=== PATIENT | male | born 1960 | race Caucasian/White ===

== ENCOUNTER 2017-10-28 21:52 | Observation (INO) | payer BC ==
[~2017-10-28] VITALS: Ht 175.3 cm; Wt 114.1 kg
[2017-10-28 22:18] VITALS: BP 185/98; PULSE 92; RESP 26; TEMP 97.2; O2SAT 100
[2017-10-28] MEDS ORDERED: HYDROmorphone HCL PF 2 MG/ML VIAL IV PUSH ONE (22:45)
[2017-10-28] MEDS ORDERED: SODIUM CHLORIDE 0.9% FLUSH 10 ML FLUSH IV FLUSH PRN (22:45)
[2017-10-28] MEDS ORDERED: CYCLOBENZAPRINE HCL 10 MG TAB PO ONE (22:45)
--- NOTE | 2017-10-28 22:50 | PD ---
HPI Chief Complaint: Back/ Neck Pain or Injury Time Seen by Provider: 22:30 Travel History International Travel<30 days: No Contact w/Intl Traveler<30days: No Traveled to known affect area: No History of Present Illness HPI 56-year-old male here for evaluation of severe lower back pain. The patient reports history of sciatica and reports that over the last week it has been progressively getting worse. He complains of lower back pain on the right side that radiates down his right leg. Today he tried to massage his lower back by laying on a tennis ball and reports experiencing severe pain with this. He states that the pain is so bad that he is unable to ambulate or move his leg. He denies urinary or bowel incontinence or retention. No fevers or chills. No history of cancer. No IVDU. [facility] Social History Tobacco Use: No Allergies-Medications (Allergen,Severity, Reaction): Coded Allergies: Penicillins (Verified Allergy, Unknown, 10/28/17) codeine (Verified Allergy, Unknown, 10/28/17) Reported Meds & Prescriptions Reported Meds & Active Scripts Active No Active Prescriptions or Reported Medications Review of Systems Except as stated in HPI: all other systems reviewed are Neg Physical Exam Narrative GENERAL: Well-developed, well-nourished, uncomfortable, moaning because of pain. SKIN: Focused skin assessment warm/dry. No rash. HEAD: Atraumatic. Normocephalic. EYES: Pupils equal and round. No scleral icterus. No injection or drainage. ENT: Mucous membranes pink and moist. NECK: Trachea midline. No JVD. CARDIOVASCULAR: Regular rate and rhythm. No murmur appreciated. RESPIRATORY: No accessory muscle use. Clear to auscultation. Breath sounds equal bilaterally. GASTROINTESTINAL: Abdomen soft, non-tender, nondistended. Hepatic and splenic margins not palpable. MUSCULOSKELETAL: No obvious deformities. No clubbing. No cyanosis. No edema. Normal range of flexion and extension in bilateral upper and lower extremities. Mild midline lumbar spine tenderness over L4 and L5 without step-off. Moderate right SI joint tenderness. No CVA tenderness. NEUROLOGICAL: Awake and alert. No obvious cranial nerve deficits. Motor grossly within normal limits. Normal speech. Great toe extension present bilaterally. Brisk patellar tendon reflexes bilaterally. Normal motor/sensory in bilateral lower extremities. No saddle anesthesia. PSYCHIATRIC: Appropriate mood and affect; insight and judgment normal. Data Data Last Documented VS Vital Signs Date Time Temp Pulse Resp B/P (MAP) Pulse Ox O2 Delivery O2 Flow Rate FiO2 10/29/17 00:14 18 10/29/17 00:13 82 134/82 (99) 94 Room Air 10/28/17 22:18 97.2 Orders Orders Complete Blood Count With Diff (10/28/17 22:35) Comprehensive Metabolic Panel (10/28/17 22:35) Prothrombin Time / Inr (Pt) (10/28/17 22:35) Act Partial Throm Time (Ptt) (10/28/17 22:35) Urinalysis - C+S If Indicated (10/28/17 22:35) Iv Access Insert/Monitor (10/28/17 22:35) Ecg Monitoring (10/28/17 22:35) Oximetry (10/28/17 22:35) Sodium Chloride 0.9% Flush (Ns Flush) (10/28/17 22:45) Hydromorphone Pf Inj (Dilaudid Pf Inj) (10/28/17 22:45) Mri L Spine W/O Contrast (10/28/17 ) Cyclobenzaprine (Flexeril) (10/28/17 22:45) Dexamethasone Inj (Decadron Inj) (10/28/17 23:00) Lorazepam Inj (Ativan Inj) (10/28/17 23:30) Hydromorphone Pf Inj (Dilaudid Pf Inj) (10/29/17 00:30) Admit Order (Ed Use Only) (10/29/17 00:57) Place In Observation (10/29/17 ) Vital Signs (Adult) Q4H (10/29/17 00:57) Neuro Checks Q4H (10/29/17 00:57) Activity Oob With Assistance (10/29/17 00:57) Transmission Specialist / Telemetry .CONTINUOUS (10/29/17 00:57) Diet Heart Healthy (10/29/17 Breakfast) Sodium Chloride 0.9% Flush (Ns Flush) (10/29/17 01:00) Sodium Chloride 0.9% Flush (Ns Flush) (10/29/17 09:00) Basic Metabolic Panel (Bmp) (10/30/17 06:00) Complete Blood Count With Diff (10/30/17 06:00) Pt Request For Service (10/29/17 00:57) Case Management Consult (10/29/17 00:57) Naloxone Inj (Narcan Inj) (10/29/17 01:00) Consult Neurosurgery (10/29/17 ) Hydromorphone Pf Inj (Dilaudid Pf Inj) (10/29/17 01:00) Dexamethasone Inj (Decadron Inj) (10/29/17 06:00) Pantoprazole (Protonix) (10/29/17 09:00) (Hub Use Only)Inp Phy Cons/Ref (10/29/17 ) Labs Laboratory Tests Test 10/28/17 23:00 10/29/17 00:15 White Blood Count 13.5 TH/MM3 Red Blood Count 5.02 MIL/MM3 Hemoglobin 14.9 GM/DL Hematocrit 43.8 % Mean Corpuscular Volume 87.2 FL Mean Corpuscular Hemoglobin 29.8 PG Mean Corpuscular Hemoglobin Concent 34.1 % Red Cell Distribution Width 13.2 % Platelet Count 239 TH/MM3 Mean Platelet Volume 8.6 FL Neutrophils (%) (Auto) 75.1 % Lymphocytes (%) (Auto) 16.1 % Monocytes (%) (Auto) 5.8 % Eosinophils (%) (Auto) 2.4 % Basophils (%) (Auto) 0.6 % Neutrophils # (Auto) 10.1 TH/MM3 Lymphocytes # (Auto) 2.2 TH/MM3 Monocytes # (Auto) 0.8 TH/MM3 Eosinophils # (Auto) 0.3 TH/MM3 Basophils # (Auto) 0.1 TH/MM3 CBC Comment DIFF FINAL Differential Comment Prothrombin Time 9.6 SEC Prothromb Time International Ratio 0.9 RATIO Activated Partial Thromboplast Time 22.2 SEC Blood Urea Nitrogen 20 MG/DL Creatinine 1.30 MG/DL Random Glucose 157 MG/DL Total Protein 7.6 GM/DL Albumin 4.0 GM/DL Calcium Level 9.5 MG/DL Alkaline Phosphatase 72 U/L Aspartate Amino Transf (AST/SGOT) 27 U/L Alanine Aminotransferase (ALT/SGPT) 27 U/L Total Bilirubin 0.4 MG/DL Sodium Level 138 MEQ/L Potassium Level 4.2 MEQ/L Chloride Level 102 MEQ/L Carbon Dioxide Level 24.0 MEQ/L Anion Gap 12 MEQ/L Estimat Glomerular Filtration Rate 57 ML/MIN Urine Color YELLOW Urine Turbidity HAZY Urine pH 8.0 Urine Specific [place] 1.012 Urine Protein NEG mg/dL Urine Glucose (UA) NEG mg/dL Urine Ketones 40 mg/dL Urine Occult Blood NEG Urine Nitrite NEG Urine Bilirubin NEG Urine Urobilinogen LESS THAN 2.0 MG/DL Urine Leukocyte Esterase NEG Urine RBC 1 /hpf Urine WBC 1 /hpf Urine Amorphous Sediment RARE Urine Mucus FEW /lpf Microscopic Urinalysis Comment CULT NOT INDICATED MDM Medical Decision Making Medical Screen Exam Complete: Yes Emergency Medical Condition: Yes Differential Diagnosis Sciatica, cord compression, spinal stenosis, cauda equina syndrome Narrative Course Vital signs reviewed. CBC: WBC 13.5, hemoglobin 14.9, hematocrit 43.8, platelets 239 CMP is remarkable for BUN 20, creatinine 1.3, GFR 57, random glucose 157. MRI L-spine: CONCLUSION: 1. Degenerative changes at L4-L5 and L5-S1 with central canal narrowing at L4- L5 and possible bilateral L4 and right L5 neural foraminal impingement. Patient came in in severe pain, moaning and unable to get comfortable. He reported that he was unable to move his leg or walk because of the pain. On exam he has full range of motion in bilateral lower extremities with normal muscle strength in bilateral lower extremities and great toe extension present bilaterally. Straight leg test causes severe back pain. There is no saddle anesthesia. He denies urinary or bowel incontinence or retention. I discussed with the patient whether he would want surgery if the neurosurgeon thought it was necessary. He states he is not sure and would need to discuss it with the neurosurgeon. In my opinion, based on the patient's physical exam findings, emergency decompressive surgery is not warranted at this time, therefore the neurosurgeon was not contacted emergently. Patient is still in severe pain despite receiving pain medication. He will be admitted for further pain management and likely neurosurgery evaluation. Case discussed with hospitalist Dr. Acuna who will admit the patient to her service. Diagnosis Primary Impression: Intractable low back pain Admitting Information Admitting Physician Requests: Observation Scripts No Active Prescriptions or Reported Meds Deep Aldridge MD Oct 28, 2017 22:50
[2017-10-28 22:56] VITALS: BP 161/90; PULSE 74; RESP 18; O2SAT 100
[2017-10-28] MEDS ORDERED: DEXAMETHASONE SOD PHOS 20 MG/5 ML VIAL IV PUSH ONE (23:00)
[2017-10-28 23:11] LABS: AUTOMATED NEUTROPHIL # 10.1 TH/MM3 (1.8-7.7); BASOPHIL # 0.1 TH/MM3 (0-0.2); BASOPHIL % 0.6 % (0.0-2.0); EOSINOPHIL # 0.3 TH/MM3 (0-0.4); EOSINOPHIL % 2.4 % (0.0-4.0); HEMATOCRIT 43.8 % (39.0-51.0); HEMOGLOBIN 14.9 GM/DL (13.0-17.0); LYMPH % 16.1 % (9.0-44.0); LYMPHOCYTE # 2.2 TH/MM3 (1.0-4.8); MEAN CELL VOLUME 87.2 FL (80.0-100.0); MEAN CORPUSCULAR HEMOGLOBIN 29.8 PG (27.0-34.0); MEAN CORPUSCULAR HGB CONC 34.1 % (32.0-36.0); MEAN PLATELET VOLUME 8.6 FL (7.0-11.0); MONO % 5.8 % (0.0-8.0); MONOCYTE # 0.8 TH/MM3 (0-0.9); NEUT % 75.1 % (16.0-70.0); PLATELET COUNT 239 TH/MM3 (150-450); RED BLOOD COUNT 5.02 MIL/MM3 (4.50-5.90); RED CELL DISTRIBUTION WIDTH 13.2 % (11.6-17.2); WHITE BLOOD COUNT 13.5 TH/MM3 (4.0-11.0)
[2017-10-28] MEDS ORDERED: LORazepam 2 MG/ML VIAL IV PUSH ONE (23:30)
[2017-10-28 23:36] LABS: INTERNATIONAL NORMALIZED RATIO 0.9 RATIO; PROTHROMBIN TIME - PATIENT 9.6 SEC (9.8-11.6)
[2017-10-28 23:47] LABS: ALKALINE PHOSPHATASE 72 U/L (45-117); ALT (GPT) 27 U/L (12-78); AST (GOT) 27 U/L (15-37); BLOOD UREA NITROGEN 20 MG/DL (7-18); CALCIUM 9.5 MG/DL (8.5-10.1); CHLORIDE 102 MEQ/L (98-107); GLOMERULAR FILTRATION RATE 57 ML/MIN (>89); GLUCOSE,RANDOM 157 MG/DL (74-106); SODIUM (NA) 138 MEQ/L (136-145); TOTAL BILIRUBIN ADULT 0.4 MG/DL (0.2-1.0); TOTAL PROTEIN 7.6 GM/DL (6.4-8.2)
[2017-10-29] VITALS (9 sets, daily range): BP systolic 124–148; BP diastolic 73–83; PULSE 66–97; RESP 16–19; TEMP 97.7–98; O2SAT 94–100
--- NOTE | 2017-10-29 00:15 | RADRPT ---
EXAM DATE/TIME: 10/28/2017 23:34 [facility] COMPARISON: No previous studies available for comparison. INDICATIONS : Pain. MEDICAL HISTORY : Renal calculi. SURGICAL HISTORY : Steroid injection in back 2 plus years ago. ENCOUNTER: Initial ACUITY: > 1 year PAIN SCORE: 10/10 LOCATION: Right low back. TECHNIQUE: Multiplanar multisequence MRI of the lumbar spine was performed without contrast. FINDINGS: The most caudal appearing lumbar vertebra is numbered as L5. VERTEBRAE: Homogeneous signal. Normal alignment. CONUS: Normal level and configuration. T12-L1: The thecal sac has a normal diameter. No evidence of disc bulge or protrusion. The neural foramina are patent bilaterally. L1-L2: The thecal sac has a normal diameter. No evidence of disc bulge or protrusion. The neural foramina are patent bilaterally. L2-L3: The thecal sac has a normal diameter. No evidence of disc bulge or protrusion. The neural foramina are patent bilaterally. L3-L4: The thecal sac has a normal diameter. No evidence of disc bulge or protrusion. The neural foramina are patent bilaterally. L4-L5: There is disc desiccation and disc space narrowing with a broad-based disc osteophyte complex. Promin ent ligament flavum hypertrophy and bony hypertrophy of the facets. This combination narrows the late ral recesses bilaterally as well is the central canal. The anterior to posterior dimension of the the pritesh space in the midline is 10 mm. The disc just touches the inferior margin of both L4 nerve roots w ithin their respective neural foramen. This is more pronounced on the left. L5-S1: Disc desiccation with minimal loss of height. A minimal broad-based bulge. Mild ligamentum flavum hyp ertrophy of the facets. There is impingement of the right L5 nerve root within the neural foramen due to a left posterior lateral component to the disc bulge. Right neural foramen is patent. CONCLUSION: 1. Degenerative changes at L4-L5 and L5-S1 with central canal narrowing at L4-L5 and possible bilater al L4 and right L5 neural foraminal impingement. Bacilio Brown Jr., MD on October 29, 2017 at 0:09 Board Certified Radiologist. This report was verified electronically.
[2017-10-29 00:30] LABS: AMORPHOUS SEDIMENT, URINE RARE; BILIRUBIN, URINE NEG (NEG); BLOOD, URINE NEG (NEG); GLUCOSE,URINE NEG (NEG); KETONE, URINE 40 mg/dL (NEG); MUCUS URINE FEW /lpf (OCC); NITRITE,URINE NEG (NEG); URINE COLOR YELLOW (YELLW/STRAW); URINE LEUKOCYTE ESTERASE NEG (NEG)
[2017-10-29] MEDS ORDERED: HYDROmorphone HCL PF 2 MG/ML VIAL IV PUSH ONE (00:30)
[2017-10-29] MEDS ORDERED: NALOXONE HCL 0.4 MG/ML AMP IV PUSH PRN (01:00)
[2017-10-29] MEDS: HYDROmorphone HCL PF 2 MG/ML VIAL IV PRN ×4 (03:39→16:38)
[2017-10-29] MEDS: DEXAMETHASONE SOD PHOS 4 MG/ML VIAL IV PUSH SCH ×3 (06:02→19:02)
[2017-10-29] MEDS: PANTOPRAZOLE SOD 40 MG DELAYED RELEASE TAB PO SCH (08:37)
[2017-10-29] MEDS: SODIUM CHLORIDE 0.9% FLUSH 10 ML FLUSH IV FLUSH SCH ×2 (08:38→21:00)
--- NOTE | 2017-10-29 14:41 | HHI.HP ---
[facility] Admission Diagnosis Intractable low back pain Diagnoses: Chief Complaint: Severe low back pain, Severe Right Hip Pain Travel History International Travel<30 Days: No Contact w/Intl Traveler <30 Da: No Traveled to Known Affected Are: No History of Present Illness Written by Susan Houston, acting as scribe for Dr. Solis on 10/29/17 at 14:41 Patient is a 56-year-old male with primary medical history of sciatic nerve pain who came into the hospital for complaints of severe low back pain, severe right hip pain. Patient states that right hip pain started about a week and a half ago but it was worse last night that he is unable to put weight or pressure onto it. He also states that he was unable to walk because of severe pain that he went to the hospital for further evaluation. Pain is right hip shooting down to his right lower extremity. Patient states that prior to this pain he usually has left hip pain, since he was 17 years old that shoots down all the way to his legs and he has prior steroid injection for it. He was also seen prior by pain management but has not seen any pain management for 2 years because he thought the pain has improved. Pain is rated 10/10, right hip, aggravated by movement abduction and adduction, relieved by current pain management but only for short period of time. Otherwise, denies SOB/ dyspnea. Denies chest pain, palpitations, headaches, dizziness. Denies fevers, chills, n/v/d. Denies dysuria. Denies bowel and bladder changes. Denies trauma. Review of Systems Except as stated in HPI: all other systems reviewed are Neg Past Family Social History Past Medical History Sciatica Past Surgical History Kidney Stone Removal Steroid injections Reported Medications None Allergies: Coded Allergies: Penicillins (Verified Allergy, Unknown, 10/28/17) codeine (Verified Allergy, Unknown, 10/28/17) Active Ordered Medications Current Medications Medications (Trade) Dose Ordered Sig/Michelle Route Start Time Stop Time Status Last Admin (NS Flush) 2 ml UNSCH PRN IV FLUSH 10/29/17 01:00 (NS Flush) 2 ml BID IV FLUSH 10/29/17 09:00 10/29/17 08:38 (Narcan Inj) 0.4 mg UNSCH PRN IV PUSH 10/29/17 01:00 (Dilaudid Pf Inj) 1 mg Q4H PRN IV 10/29/17 01:15 10/29/17 12:10 (Decadron Inj) 4 mg Q6HR IV PUSH 10/29/17 06:00 10/29/17 12:10 (Protonix) 40 mg DAILY PO 10/29/17 09:00 10/29/17 08:37 Family History Father has cancer, started with cyst on the leg and moved to the lungs and of brain cancer Mother has heart disease, at old age 89 Social History Denies alcohol use Denies tobacco use Denies illicit drug use Physical Exam Vital Signs Vital Signs Date Time Temp Pulse Resp B/P (MAP) Pulse Ox O2 Delivery O2 Flow Rate FiO2 10/29/17 12:14 90 17 134/78 (96) 96 Room Air 10/29/17 07:45 97.8 97 18 124/78 (93) 98 Room Air 10/29/17 07:45 97 18 10/29/17 05:56 18 10/29/17 03:42 66 16 127/79 (95) 95 Room Air 10/29/17 00:14 18 10/29/17 00:13 82 18 134/82 (99) 94 Room Air 10/28/17 22:56 74 18 161/90 (113) 100 Room Air 10/28/17 22:52 18 10/28/17 22:18 97.2 92 26 185/98 (127) 100 Physical Exam GENERAL: This is a well-nourished, well-developed patient, in no apparent distress. SKIN: Cool and dry. HEAD: Atraumatic. Normocephalic. EYES: Pupils equal round and reactive. Extraocular motions intact. No scleral icterus. No injection or drainage. ENT: Nose without bleeding. Throat without erythema. Uvula midline. Airway patent. NECK: Trachea midline. CARDIOVASCULAR: Regular rate and rhythm without murmurs, gallops, or rubs. RESPIRATORY: Clear to auscultation. Breath sounds equal bilaterally. No wheezes , rales, or rhonchi. GASTROINTESTINAL: Abdomen soft, non-tender, nondistended. Bowel sounds active 4. MUSCULOSKELETAL: Extremities without clubbing, cyanosis, or edema. Right lower extremity 5/5 plantar and dorsiflexion. Pain with abduction, adduction NEUROLOGICAL: Awake and alert. Cranial nerves II through XII intact. Motor and sensory grossly within normal limits. Normal speech. Laboratory Laboratory Tests Test 10/28/17 23:00 10/29/17 00:15 White Blood Count 13.5 Red Blood Count 5.02 Hemoglobin 14.9 Hematocrit 43.8 Mean Corpuscular Volume 87.2 Mean Corpuscular Hemoglobin 29.8 Mean Corpuscular Hemoglobin Concent 34.1 Red Cell Distribution Width 13.2 Platelet Count 239 Mean Platelet Volume 8.6 Neutrophils (%) (Auto) 75.1 Lymphocytes (%) (Auto) 16.1 Monocytes (%) (Auto) 5.8 Eosinophils (%) (Auto) 2.4 Basophils (%) (Auto) 0.6 Neutrophils # (Auto) 10.1 Lymphocytes # (Auto) 2.2 Monocytes # (Auto) 0.8 Eosinophils # (Auto) 0.3 Basophils # (Auto) 0.1 CBC Comment DIFF FINAL Differential Comment Prothrombin Time 9.6 Prothromb Time International Ratio 0.9 Activated Partial Thromboplast Time 22.2 Blood Urea Nitrogen 20 Creatinine 1.30 Random Glucose 157 Total Protein 7.6 Albumin 4.0 Calcium Level 9.5 Alkaline Phosphatase 72 Aspartate Amino Transf (AST/SGOT) 27 Alanine Aminotransferase (ALT/SGPT) 27 Total Bilirubin 0.4 Sodium Level 138 Potassium Level 4.2 Chloride Level 102 Carbon Dioxide Level 24.0 Anion Gap 12 Estimat Glomerular Filtration Rate 57 Urine Color YELLOW Urine Turbidity HAZY Urine pH 8.0 Urine Specific [place] 1.012 Urine Protein NEG Urine Glucose (UA) NEG Urine Ketones 40 Urine Occult Blood NEG Urine Nitrite NEG Urine Bilirubin NEG Urine Urobilinogen LESS THAN 2.0 Urine Leukocyte Esterase NEG Urine RBC 1 Urine WBC 1 Urine Amorphous Sediment RARE Urine Mucus FEW Microscopic Urinalysis Comment CULT NOT INDICATED Result Diagram: 10/28/17 23010/28/17 230 Imaging Last Impressions Lumbar Spine MRI 10/28/17 0000 Signed Impressions: Service Date/Time: Saturday, October 28, 2017 23:34 - CONCLUSION: 1. Degenerative changes at L4-L5 and L5-S1 with central canal narrowing at L4-L5 and possible bilateral L4 and right L5 neural foraminal impingement. MD Mary Mckinley Jr. VTE Risk Assessment Caprini VTE Risk Assessment: No/Low Risk (score <= 1) Caprini Risk Assessment Model Point Value = 1 Point Value = 2 Point Value = 3 Point Value = 5 Age 41-60 Minor surgery BMI > 25 kg/m2 Swollen legs Varicose veins or History of unexplained or recurrent spontaneous Oral contraceptives or hormone replacement Sepsis (< 1 month) Serious lung disease, including pneumonia (< 1 month) Abnormal pulmonary function Acute myocardial infarction Congestive heart failure (< 1 month) History of inflammatory bowel disease Medical patient at bed rest Age 61-74 Arthroscopic surgery Major open surgery (> 45 min) Laparoscopic surgery (> 45 min) Malignancy Confined to bed (> 72 hours) Immobilizing plaster cast Central venous access Age >= 75 History of VTE Family history of VTE Factor V Leiden Prothrombin [id number] Lupus anticoagulant Anticardiolipin antibodies Elevated serum homocysteine Heparin-induced thrombocytopenia Other congenital or acquired thrombophilia Stroke (< 1 month) Elective arthroplasty Hip, pelvis, or leg fracture Acute spinal cord injury (< 1 month) Prophylaxis Regimen Total Risk Factor Score Risk Level Prophylaxis Regimen 0-1 Low Early ambulation 2 Moderate Order ONE of the following: *Sequential Compression Device (SCD) *Heparin 5000 units SQ BID 3-4 Higher Order ONE of the following medications: *Heparin 5000 units SQ TID *Enoxaparin/Lovenox 40 mg SQ daily (WT < 150 kg, CrCl > 30 mL/min) *Enoxaparin/Lovenox 30 mg SQ daily (WT < 150 kg, CrCl > 10-29 mL/min) *Enoxaparin/Lovenox 30 mg SQ BID (WT < 150 kg, CrCl > 30 mL/min) AND/OR *Sequential Compression Device (SCD) 5 or more Highest Order ONE of the following medications: *Heparin 5000 units SQ TID (Preferred with Epidurals) *Enoxaparin/Lovenox 40 mg SQ daily (WT < 150 kg, CrCl > 30 mL/min) *Enoxaparin/Lovenox 30 mg SQ daily (WT < 150 kg, CrCl > 10-29 mL/min) *Enoxaparin/Lovenox 30 mg SQ BID (WT < 150 kg, CrCl > 30 mL/min) AND *Sequential Compression Device (SCD) Assessment and Plan Problem List: (1) Lumbar stenosis ICD Code: M48.061 - Spinal stenosis, lumbar region without neurogenic claudication (2) Intractable low back pain ICD Code: M54.5 - Low back pain Status: Acute Assessment and Plan Patient is a 56-year-old male with primary medical history of sciatic nerve pain who came into the hospital for complaints of severe low back pain, severe right hip pain. Intractable Low Back Pain Sciatica Lumbar Stenosis -Lumbar spine MRI showed 1. Degenerative changes at L4-L5 and L5-S1 with central canal narrowing at L4-L5 and possible bilateral L4 and right L5 neural foraminal impingement. -Neurosurgery consulted for further evaluation recommendation -Patient states that if he needed neurosurgical intervention for his pain, he prefers to go to [place] to see a neurosurgeon there pending recommendations of neurosurgery in the hospital. -Pain management Percocet, IV Dilaudid for breakthrough pain, Flexeril for muscle spasms -Continue dexamethasone -Physical therapy eval and treat -Continue to monitor. DVT Prop SCDs, if no neurosurgical intervention planned immediately, may start Lovenox Code Status Full Code Discussed Condition With Patient, nursing Physician Certification 2 Midnight Certification Type: Admission for Inpatient Services Order for Inpatient Services The services are ordered in accordance with Medicare regulations or non- Medicare payer requirements, as applicable. In the case of services not specified as inpatient-only, they are appropriately provided as inpatient services in accordance with the 2-midnight benchmark. Estimated LOS (days): 2 days is the estimated time the patient will need to remain in the hospital, assuming treatment plan goals are met and no additional complications. Post-Hospital Plan: Home Susan Gudino Oct 29, 2017 14:41 Yani Solis MD Oct 29, 2017 15:15
[2017-10-29] MEDS ORDERED: oxyCODONE/ACETAMINOPHEN 7.5 MG/325 MG TAB PO PRN (14:45)
[2017-10-29] MEDS ORDERED: diphenhydrAMINE HCL 50 MG/ML VIAL IV PUSH PRN (14:45)
[2017-10-29] MEDS: CYCLOBENZAPRINE HCL 10 MG TAB PO SCH ×2 (15:33→21:59)
[2017-10-29] MEDS: oxyCODONE/ACETAMINOPHEN 10 MG/325 MG TAB PO PRN ×2 (15:33→21:59)
[2017-10-29] MEDS: SODIUM CHLORIDE 0.9% FLUSH 10 ML FLUSH IV FLUSH PRN ×2 (16:39→19:02)
[2017-10-29] MEDS: KETOROLAC TROMETHAMINE 60 MG/2 ML (IM) VIAL IM SCH (20:12)
--- NOTE | 2017-10-29 21:39 | PD.CONS ---
History of Present Illness Service Neurosurgery Consult Requested By Medicine service Reason for Consult Right lumbar radiculopathy Primary Care Physician Unknown Diagnoses: History of Present Illness 56-year-old male provides a history of low back pain since he was a teenager. He has had previous epidural steroid injections in the past, the most recent being a couple of years ago. He states that for the past 2 years, he has been doing relatively well in regards to his low back. He has previously had occasional episodes of increased left lateral lower extremity pain, but for the past couple of years since his been mostly a dull constant relatively tolerable pain. However, approximately 2-3 weeks ago he developed rather abrupt onset of severe progressive pain in the right low back radiating to the lateral right lower extremity. No definite numbness or weakness. No complaining of bowel or bladder dysfunction. The pain became severe enough that he presented to the emergency room last evening. Review of Systems Constitutional: DENIES: Fever, Chills Ears, nose, mouth, throat: DENIES: Throat pain Respiratory: DENIES: Shortness of breath Cardiovascular: DENIES: Chest pain Gastrointestinal: DENIES: Abdominal pain, Nausea Musculoskeletal: COMPLAINS OF: Joint pain, Muscle aches, Back pain, DENIES: Neck pain Hematologic/lymphatic: DENIES: Bruising Neurologic: COMPLAINS OF: Abnormal gait, DENIES: Headache Psychiatric: DENIES: Anxiety Past Family Social History Allergies: Coded Allergies: Penicillins (Verified Allergy, Unknown, 10/28/17) codeine (Verified Allergy, Unknown, 10/28/17) Past Medical History Chronic low back pain. No significant cardiac, pulmonary, gastrointestinal disease, diabetes, hypertension Past Surgical History Kidney stone Reported Medications Reported Meds & Active Scripts Active No Active Prescriptions or Reported Medications Family History His father had brain cancer Social History No cigarette or alcohol use Physical Exam Vital Signs Vital Signs Date Time Temp Pulse Resp B/P (MAP) Pulse Ox O2 Delivery O2 Flow Rate FiO2 10/29/17 20:32 98.0 74 16 130/73 (92) 97 10/29/17 16:00 97.7 82 16 148/83 (104) 98 10/29/17 15:52 80 138/77 (97) 10/29/17 15:32 80 19 138/77 (97) 100 Room Air 10/29/17 12:14 90 17 134/78 (96) 96 Room Air 10/29/17 07:45 97.8 97 18 124/78 (93) 98 Room Air 10/29/17 07:45 97 18 10/29/17 05:56 18 10/29/17 03:42 66 16 127/79 (95) 95 Room Air 10/29/17 00:14 18 10/29/17 00:13 82 18 134/82 (99) 94 Room Air 10/28/17 22:56 74 18 161/90 (113) 100 Room Air 10/28/17 22:52 18 10/28/17 22:18 97.2 92 26 185/98 (127) 100 Physical Exam GENERAL: This is a well-nourished, well-developed patient, no apparent distress. SKIN: No abrasions, contusion, rash noted. Skin warm and dry. HEAD: Atraumatic. Normocephalic. No temporal or scalp tenderness. EYES: Sclerae are clear and nonicteric ENT: No facial edema or ecchymosis. No periorbital edema. No CSF otorrhea or rhinorrhea. No palpable facial fracture or deformity. NECK: Trachea midline. No cervical spine tenderness. CARDIOVASCULAR: Pulse regular RESPIRATORY: Clear, nonlabored GASTROINTESTINAL: Abdomen soft, non-tender, nondistended. MUSCULOSKELETAL: Extremities without cyanosis, or edema. No joint tenderness, or edema noted. No calf tenderness. Dorsalis pedis pulses 2+ bilateral NEUROLOGICAL: Awake and alert Oriented X 3 Speech is clear Conversant and appropriate Follow simple commands well Answers questions appropriately Reasonable judgment and insight Recent and remote memory are intact No evidence of anxiety or depression Pupils are equal and reactive to accommodation. Extra-ocular movements, visual weems to confrontation, facial sensorimotor, tongue, palate, sternocleidomastoid testing, hearing to finger rub testing, and bilateral shoulder shrug are all intact. Sensation is intact to light touch in all extremities Strength normal major flexion and extension groups all extremities . He does have some breakaway weakness with right lower extremity motor testing due to complaint of back pain radiating to the right leg with some testing. Significant increased pain right posterolateral lower extremity 45 supine position. Seferino's absent bilaterally No ankle clonus Plantar responses absent bilateral Fine motor movements intact upper extremities Laboratory Laboratory Tests Test 10/28/17 23:00 10/29/17 00:15 White Blood Count 13.5 Red Blood Count 5.02 Hemoglobin 14.9 Hematocrit 43.8 Mean Corpuscular Volume 87.2 Mean Corpuscular Hemoglobin 29.8 Mean Corpuscular Hemoglobin Concent 34.1 Red Cell Distribution Width 13.2 Platelet Count 239 Mean Platelet Volume 8.6 Neutrophils (%) (Auto) 75.1 Lymphocytes (%) (Auto) 16.1 Monocytes (%) (Auto) 5.8 Eosinophils (%) (Auto) 2.4 Basophils (%) (Auto) 0.6 Neutrophils # (Auto) 10.1 Lymphocytes # (Auto) 2.2 Monocytes # (Auto) 0.8 Eosinophils # (Auto) 0.3 Basophils # (Auto) 0.1 CBC Comment DIFF FINAL Differential Comment Prothrombin Time 9.6 Prothromb Time International Ratio 0.9 Activated Partial Thromboplast Time 22.2 Blood Urea Nitrogen 20 Creatinine 1.30 Random Glucose 157 Total Protein 7.6 Albumin 4.0 Calcium Level 9.5 Alkaline Phosphatase 72 Aspartate Amino Transf (AST/SGOT) 27 Alanine Aminotransferase (ALT/SGPT) 27 Total Bilirubin 0.4 Sodium Level 138 Potassium Level 4.2 Chloride Level 102 Carbon Dioxide Level 24.0 Anion Gap 12 Estimat Glomerular Filtration Rate 57 Urine Color YELLOW Urine Turbidity HAZY Urine pH 8.0 Urine Specific [place] 1.012 Urine Protein NEG Urine Glucose (UA) NEG Urine Ketones 40 Urine Occult Blood NEG Urine Nitrite NEG Urine Bilirubin NEG Urine Urobilinogen LESS THAN 2.0 Urine Leukocyte Esterase NEG Urine RBC 1 Urine WBC 1 Urine Amorphous Sediment RARE Urine Mucus FEW Microscopic Urinalysis Comment CULT NOT INDICATED Result Diagram: 10/28/17 2300 10/28/17 2300 Imaging 10/28/2017 MRI lumbar spine images reviewed by the undersigned. There is moderate bilateral L4 5 lateral recess stenosis with mild to moderate diffuse disc and annular displacement. Positive right L5-S1 foraminal stenosis. Lumbar Spine MRI 10/28/17 0000 Signed Impressions: Service Date/Time: Saturday, October 28, 2017 23:34 - CONCLUSION: 1. Degenerative changes at L4-L5 and L5-S1 with central canal narrowing at L4-L5 and possible bilateral L4 and right L5 neural foraminal impingement. Bacilio Brown Jr., MD Assessment and Plan Assessment and Plan Impression: 1. Right L5 radiculopathy without focal sensory or motor deficit. This appears related to right L4-5 lateral recess stenosis with mild to moderate diffuse disc displacement, with also possible contribution from right L5-S1 foraminal stenosis seen on MRI. Plan: Findings were discussed at length with the patient. He would like to continue further conservative treatment and observation at this point and try to avoid any surgical intervention. Have added Toradol IV to his present medication regimen which includes Percocet , Flexeril, IV Decadron, hydromorphone for breakthrough pain. Risk of gastritis, ulcers with chronic NSAID use discussed. Physical therapy scheduled. If he feels better, he would like to try to go home to [facility] for further epidural steroid injections. Christiano Clements MD Oct 29, 2017 21:39
[2017-10-30] VITALS (7 sets, daily range): BP systolic 106–137; BP diastolic 58–85; PULSE 59–87; RESP 16–20; TEMP 97.9–98.8; O2SAT 95–98
[2017-10-30] MEDS: HYDROmorphone HCL PF 2 MG/ML VIAL IV PRN (01:27)
[2017-10-30] MEDS: DEXAMETHASONE SOD PHOS 4 MG/ML VIAL IV PUSH SCH ×2 (01:28→06:35)
[2017-10-30] MEDS: CYCLOBENZAPRINE HCL 10 MG TAB PO SCH (06:35)
[2017-10-30] MEDS: KETOROLAC TROMETHAMINE 60 MG/2 ML (IM) VIAL IM SCH ×2 (06:36)
[2017-10-30 08:08] LABS: AUTOMATED NEUTROPHIL # 13.5 TH/MM3 (1.8-7.7); HEMATOCRIT 45.8 % (39.0-51.0); HEMOGLOBIN 15.3 GM/DL (13.0-17.0); LYMPH % 8.7 % (9.0-44.0); LYMPHOCYTE # 1.3 TH/MM3 (1.0-4.8); MEAN CELL VOLUME 87.9 FL (80.0-100.0); MEAN CORPUSCULAR HEMOGLOBIN 29.3 PG (27.0-34.0); MEAN CORPUSCULAR HGB CONC 33.3 % (32.0-36.0); MEAN PLATELET VOLUME 8.9 FL (7.0-11.0); MONO % 4.2 % (0.0-8.0); MONOCYTE # 0.7 TH/MM3 (0-0.9); NEUT % 87.1 % (16.0-70.0); PLATELET COUNT 267 TH/MM3 (150-450); RED BLOOD COUNT 5.21 MIL/MM3 (4.50-5.90); RED CELL DISTRIBUTION WIDTH 13.7 % (11.6-17.2); WHITE BLOOD COUNT 15.5 TH/MM3 (4.0-11.0)
[2017-10-30] MEDS ORDERED: CYCL10TA PO (08:15)
[2017-10-30] MEDS ORDERED: NAPR500T2 PO (08:15)
[2017-10-30] MEDS ORDERED: FAMO1TAB37 PO (08:15)
[2017-10-30] MEDS ORDERED: OXYC1TAB35 PO (08:15)
--- NOTE | 2017-10-30 08:45 | HHI.PR ---
Subjective Remarks In bed, says pain is controlled by meds. Per surgeon non emergent surgery needed and patient can haverurgery on [place] with his neurosurgeron. Patient is discharged to f/u as with his surgeon in [place] Objective Vitals Vital Signs Date Time Temp Pulse Resp B/P (MAP) Pulse Ox O2 Delivery O2 Flow Rate FiO2 10/30/17 04:33 98.8 61 16 127/66 (86) 95 10/30/17 04:01 60 10/30/17 00:56 98.4 87 16 106/58 (74) 95 10/30/17 00:01 60 10/29/17 20:32 98.0 74 16 130/73 (92) 97 10/29/17 20:01 78 10/29/17 16:00 97.7 82 16 148/83 (104) 98 10/29/17 15:52 80 138/77 (97) 10/29/17 15:32 80 19 138/77 (97) 100 Room Air 10/29/17 12:14 90 17 134/78 (96) 96 Room Air I/O 10/29/17 10/29/17 10/29/17 10/30/17 10/30/17 10/30/17 07:00 15:00 23:00 07:00 15:00 23:00 Output Total 400 ml Balance -400 ml Output Urine Total 400 ml # Voids 2 Result Diagram: 10/30/17 0727 10/28/17 2300 Imaging Last Impressions Lumbar Spine MRI 10/28/17 0000 Signed Impressions: Service Date/Time: Saturday, October 28, 2017 23:34 - CONCLUSION: 1. Degenerative changes at L4-L5 and L5-S1 with central canal narrowing at L4-L5 and possible bilateral L4 and right L5 neural foraminal impingement. Bacilio Brown Jr., MD Objective Remarks GENERAL: This is a well-nourished, well-developed patient, in no apparent distress. CARDIOVASCULAR: Regular rate and rhythm without murmurs, gallops, or rubs. RESPIRATORY: Clear to auscultation. Breath sounds equal bilaterally. No wheezes , rales, or rhonchi. GASTROINTESTINAL: Abdomen soft, non-tender, nondistended. Bowel sounds active 4. MUSCULOSKELETAL: Extremities without clubbing, cyanosis, or edema. Right lower extremity 5/5 plantar and dorsiflexion. Pain with abduction, adduction NEUROLOGICAL: Awake and alert. Cranial nerves II through XII intact. Motor and sensory grossly within normal limits. Normal speech. A/P Problem List: (1) Lumbar stenosis ICD Code: M48.061 - Spinal stenosis, lumbar region without neurogenic claudication (2) Intractable low back pain ICD Code: M54.5 - Low back pain Status: Acute Assessment and Plan Patient is a 56-year-old male with primary medical history of sciatic nerve pain who came into the hospital for complaints of severe low back pain, severe right hip pain. Intractable Low Back Pain Sciatica Lumbar Stenosis -Lumbar spine MRI showed 1. Degenerative changes at L4-L5 and L5-S1 with central canal narrowing at L4-L5 and possible bilateral L4 and right L5 neural foraminal impingement. -Neurosurgery consulted for further evaluation recommendation. No need for emergein surgery . Patient can f/u with his surgeon on [place]. -Patient states that if he needed neurosurgical intervention for his pain, he prefers to go to [place] to see a neurosurgeon there pending recommendations of neurosurgery in the hospital. -Pain management Percocet, IV Dilaudid for breakthrough pain, Flexeril for muscle spasms. Pain controlled by PO meds -Continue dexamethasone -Physical therapy eval and treat DVT Prop SCDs, if no neurosurgical intervention planned immediately, may start Lovenox Code Status Full Code Discussed Condition With Patient, nurse Improved. Pain is controlled by meds. no surgery planned at this time. Discharged in stable condition to follow up as OP with PCP and consultants. Yani Solis MD Oct 30, 2017 08:45
[2017-10-30 08:46] LABS: BICARBONATE 27.1 MEQ/L (21.0-32.0); CALCIUM 9.3 MG/DL (8.5-10.1); CREATININE 1.17 MG/DL (0.60-1.30)
[2017-10-30] MEDS ORDERED: WALKER WHEELS/F1 MIS (09:31)
--- NOTE | 2017-10-30 09:32 | HHI.FF ---
Face to Face Verification Diagnosis: (1) Radiculopathy of lumbar region (2) Lumbar stenosis Physical Therapy Order: Evaluate and Treat Home Health Nursing Order: Signs/symptoms of disease process I have seen patient Mike Hernandez on 10/30/17. My clinical findings support the need for the requested home health care services because: Ltd mobility - disease progression Deconditioned w/ increased weakness High risk of falls I certify that my clinical findings support that this patient is homebound because: Unsteady gait/balance Susan Gudino Oct 30, 2017 09:32
[2017-10-30] MEDS: PANTOPRAZOLE SOD 40 MG DELAYED RELEASE TAB PO SCH (09:42)
[2017-10-30] MEDS: SODIUM CHLORIDE 0.9% FLUSH 10 ML FLUSH IV FLUSH SCH (09:42)
[2017-10-30] MEDS: oxyCODONE/ACETAMINOPHEN 10 MG/325 MG TAB PO PRN (09:43)
--- NOTE | 2017-10-30 10:00 | HHI.DS ---
Discharge Summary Admission Date Oct 29, 2017 at 00:58 Discharge Date: Nov 01, 2017 Admitting Diagnosis Intractable low back pain (1) Lumbar stenosis ICD Code: M48.061 - Spinal stenosis, lumbar region without neurogenic claudication (2) Intractable low back pain ICD Code: M54.5 - Low back pain Status: Acute Procedures none Brief History - From Admission Written by Susan Houston, acting as scribe for Dr. Solis on 10/29/17 at 14:41 Patient is a 56-year-old male with primary medical history of sciatic nerve pain who came into the hospital for complaints of severe low back pain, severe right hip pain. Patient states that right hip pain started about a week and a half ago but it was worse last night that he is unable to put weight or pressure onto it. He also states that he was unable to walk because of severe pain that he went to the hospital for further evaluation. Pain is right hip shooting down to his right lower extremity. Patient states that prior to this pain he usually has left hip pain, since he was 17 years old that shoots down all the way to his legs and he has prior steroid injection for it. He was also seen prior by pain management but has not seen any pain management for 2 years because he thought the pain has improved. Pain is rated 10/10, right hip, aggravated by movement abduction and adduction, relieved by current pain management but only for short period of time. Otherwise, denies SOB/ dyspnea. Denies chest pain, palpitations, headaches, dizziness. Denies fevers, chills, n/v/d. Denies dysuria. Denies bowel and bladder changes. Denies trauma. CBC/BMP: 10/30/17 0727 10/30/17 0727 Significant Findings Laboratory Tests Test 10/28/17 23:00 10/29/17 00:15 10/30/17 07:27 White Blood Count 13.5 TH/MM3 (4.0-11.0) 15.5 TH/MM3 (4.0-11.0) Neutrophils (%) (Auto) 75.1 % (16.0-70.0) 87.1 % (16.0-70.0) Neutrophils # (Auto) 10.1 TH/MM3 (1.8-7.7) 13.5 TH/MM3 (1.8-7.7) Prothrombin Time 9.6 SEC (9.8-11.6) Activated Partial Thromboplast Time 22.2 SEC (24.3-30.1) Blood Urea Nitrogen 20 MG/DL (7-18) 27 MG/DL (7-18) Random Glucose 157 MG/DL (74-106) 135 MG/DL (74-106) Estimat Glomerular Filtration Rate 57 ML/MIN (>89) 64 ML/MIN (>89) Urine Turbidity HAZY (CLEAR) Urine Ketones 40 mg/dL (NEG) Urine Mucus FEW /lpf (OCC) Lymphocytes (%) (Auto) 8.7 % (9.0-44.0) PE at Discharge GENERAL: This is a well-nourished, well-developed patient, in no apparent distress. CARDIOVASCULAR: Regular rate and rhythm without murmurs, gallops, or rubs. RESPIRATORY: Clear to auscultation. Breath sounds equal bilaterally. No wheezes , rales, or rhonchi. GASTROINTESTINAL: Abdomen soft, non-tender, nondistended. Bowel sounds active 4. MUSCULOSKELETAL: Extremities without clubbing, cyanosis, or edema. Right lower extremity 5/5 plantar and dorsiflexion. Pain with abduction, adduction NEUROLOGICAL: Awake and alert. Cranial nerves II through XII intact. Motor and sensory grossly within normal limits. Normal speech. Hospital Course Patient is a 56-year-old male with primary medical history of sciatic nerve pain who came into the hospital for complaints of severe low back pain, severe right hip pain. Intractable Low Back Pain Sciatica Lumbar Stenosis -Lumbar spine MRI showed 1. Degenerative changes at L4-L5 and L5-S1 with central canal narrowing at L4-L5 and possible bilateral L4 and right L5 neural foraminal impingement. -Neurosurgery consulted for further evaluation recommendation. No need for emergein surgery . Patient can f/u with his surgeon on [place]. -Patient states that if he needed neurosurgical intervention for his pain, he prefers to go to [place] to see a neurosurgeon there pending recommendations of neurosurgery in the hospital. -Pain management Percocet, IV Dilaudid for breakthrough pain, Flexeril for muscle spasms. Pain controlled by PO meds -Continue dexamethasone -Physical therapy eval and treat DVT Prop SCDs, if no neurosurgical intervention planned immediately, may start Lovenox Code Status Full Code Discussed Condition With Patient, nurse Improved. Pain is controlled by meds. no surgery planned at this time. Discharged in stable condition to follow up as OP with PCP and consultants. Pt Condition on Discharge: Stable Discharge Disposition: Discharge Home Discharge Time: > 30 minutes Discharge Instructions DIET: Follow Instructions for: Heart Healthy Diet Activities you can perform: Regular-No Restrictions Follow up Referrals: Neurosurgery - 1 Week PCP Follow-up - 2-3 Days Physical Therapy - 1 Week New Medications: Famotidine (Pepcid) 20 Mg Tab 20 MG PO BID for Dyspepsia for 14 Days, #28 TAB 0 Refills Naproxen (Naproxen) 500 Mg Tab 500 MG PO BID for Pain Management, #30 TAB 0 Refills Walker with Front Wheels (Walker with Front Wheels) 1 Mis Mis EA .XX DIRECTED, #1 0 Refills Cyclobenzaprine (Flexeril) 10 Mg Tab 10 MG PO Q8HR for Muscle Spasm, #30 TAB Oxycodone HCl/Acetaminophen (Oxycodon-Acetaminophen 7.5-325) 7.5 Mg-325 Mg Tablet 1 TAB PO Q4H PRN for PAIN, #20 TAB Yani Solis MD Oct 30, 2017 10:00
== END 2017-10-30 14:38 | disposition home or self-care (01) ==
LOC: NEPD 21:52 → NEDA 10-29 00:58 → NEDH 10-29 06:16 → NEPFCDU 10-29 16:15
PROVIDERS: ADMIT Hospitalist; ATTEND Hospitalist
DX: M48.061 Spinal stenosis, lumbar region without neurogenic claudication (principal); M54.16 Radiculopathy, lumbar region; M54.30 Sciatica, unspecified side
CPT/HCPCS: 72148; 80048; 80053; 81001; 85025; 85610; 85730; 96374; 96375; 96376; 97110; 97116; 97163; 99285; G0378; G8987; G8988; J1100; J1170; J1885; J2060